=== PATIENT | male | born 1975 | race Native Hawaiian/Other Pacific Islander ===

== ENCOUNTER 2023-03-14 14:20 | Emergency (ER) | payer OTHER ==
[~2023-03-14] VITALS: Ht 180.3 cm; Wt 68.0 kg
[2023-03-14 14:35] VITALS: BP 144/74; TEMP 97.6
== END 2023-03-14 15:55 | disposition home or self-care (01) ==
LOC: ED 14:20
PROC: 2W3CX1Z Immobilization of Right Lower Arm using Splint (ICD-10-PCS; principal; 2023-03-14)
DX: S60.221A Contusion of right hand, initial encounter (principal); S60.211A Contusion of right wrist, initial encounter; X58.XXXA Exposure to other specified factors, initial encounter; F17.210 Nicotine dependence, cigarettes, uncomplicated
CPT/HCPCS: 99283